=== PATIENT | female | born 1980 | race Caucasian/White ===

== ENCOUNTER → 2016-05-09 | Outpatient (CLI) | payer OTHER ==
[~2016-05-09] MED LIST: BUPR-197 PO; CYCL-36 PO; FOLI1 PO; GLUCTAB PO; IBUP800T23 PO; LAMI25TA3 PO; METH2.5 PO
[2016-05-09 12:09] LABS: AUTOMATED NEUTROPHIL # 11.2 TH/MM3 (1.8-7.7); BASOPHIL # 0.1 TH/MM3 (0-0.2); BASOPHIL % 0.6 % (0.0-2.0); EOSINOPHIL # 0.3 TH/MM3 (0-0.4); HEMATOCRIT 39.2 % (35.0-46.0); LYMPH % 18.6 % (9.0-44.0); LYMPHOCYTE # 2.8 TH/MM3 (1.0-4.8); MEAN CELL VOLUME 83.9 FL (80.0-100.0); MEAN CORPUSCULAR HEMOGLOBIN 27.9 PG (27.0-34.0); MEAN CORPUSCULAR HGB CONC 33.2 % (32.0-36.0); MONO % 5.6 % (0.0-8.0); NEUT % 73.2 % (16.0-70.0); PLATELET COUNT 195 TH/MM3 (150-450); RED BLOOD COUNT 4.67 MIL/MM3 (4.00-5.30); RED CELL DISTRIBUTION WIDTH 13.4 % (11.6-17.2); WHITE BLOOD COUNT 15.3 TH/MM3 (4.0-11.0)
[2016-05-09 12:44] LABS: HEMO FLAGS AUTO DIFF
[2016-05-09 12:46] LABS: BANDS 12 % (0-6); EOSINOPHILS 2 % (0-4); NEUTROPHIL # MANUAL DIFF 11.2 TH/MM3 (1.8-7.7); POLYS (SEG NEUTROPHILS) 61 % (16-70); WBC DIFF SAMPLE 100
[2016-05-09 12:47] LABS: PLATELET ESTIMATE SMEAR NORMAL (NORMAL)
[2016-05-09 12:48] LABS: PLATELET MORPHOLOGY NORMAL (NORMAL)
[2016-05-09 12:49] LABS: SCAN/DIFF FINAL DIFF MANUAL
[2016-05-09 12:59] LABS: RUBELLA IGG ANTIBODY 245.9 IU/mL (10.0-500.0); RUBELLA STATUS IMMUNE (IMMUNE)
[2016-05-10 10:48] LABS: RAPID PLASMA REAGIN SCREEN NON-REACTIVE (NON-REACTVE)
== END ==
LOC: CLAB 11:27
PROVIDERS: ATTEND Obstetrics & Gynecology
DX: Z34.81 Encounter for supervision of other normal pregnancy, first trimester (principal); Z01.83 Encounter for blood typing
CPT/HCPCS: 36415; 85007; 85027; 86592; 86762; 86850; 86900; 86901; 87086; 87340

== ENCOUNTER → 2016-06-12 | Outpatient (CLI) | payer OTHER | LOC: CLAB 11:30 | PROVIDERS: ATTEND Obstetrics & Gynecology | DX: R39.15 Urgency of urination (principal) | CPT/HCPCS: 87086 ==

== ENCOUNTER → 2016-07-10 | Outpatient (CLI) | payer OTHER ==
[2016-07-18 11:08] LABS: CALCULATED AGE AT EDD 36 years (()); GA USED IN RISK ESTIMATE Scan estimate (()); MATERNAL RACE BLACK non-Black (()); MATERNAL WEIGHT (LBS) 178 lbs (()); RECOMMENDED FOLLOW UP None. (())
== END ==
LOC: CLAB 11:09
PROVIDERS: ATTEND Obstetrics & Gynecology
DX: Z34.82 Encounter for supervision of other normal pregnancy, second trimester (principal); R39.15 Urgency of urination
CPT/HCPCS: 81511; 87086

== ENCOUNTER 2016-08-25 12:19 | Observation (INO) | payer OTHER ==
[2016-08-25] VITALS (15 sets, daily range): BP systolic 119–122; BP diastolic 71–79; PULSE 88–104; RESP 18–20; TEMP 98.6
[2016-08-25] MEDS ORDERED: SODIUM CHLORIDE 0.9% FLUSH 10 ML FLUSH IV FLUSH PRN (13:00)
[2016-08-25] MEDS ORDERED: ACETAMINOPHEN 325 MG TAB PO PRN (13:00)
[2016-08-25] MEDS ORDERED: ONDANSETRON ODT 4 MG TAB PO PRN (13:00)
[2016-08-25] MEDS ORDERED: BETAMETHASONE SOD PHOS/ACETATE SUSP 30 MG/5 ML VIAL IM SCH (13:00)
[2016-08-25] MEDS ORDERED: ZOLPIDEM TARTRATE 5 MG TAB PO PRN (13:00)
--- NOTE | 2016-08-25 13:04 | HHI.HP ---
HPI Chief Complaint watery DC and cervix 1 cm Date Seen: Aug 25, 2016 Time Seen: 12:50 Travel History International Travel<30 Days: No Contact w/Intl Traveler<30Days: No Known Affected Area: No History of Present Illness HPI Patient is 24 3/7 weeks and come to office for routine visit. She had no contractions and US 08/24/2016 with cervix 4 and no dilation. she comes in 24 hours later with 1 cm bulging membranes. Seems to be incompetent cervix with painless dilatation Para: 2 : 3 History Past Medical History Narrative Medical arthritis and Diabetes and depression Medical History: Denies Significant Hx Obstetric History Obstetric History CS x2 full term and last 28 week delivery Past Surgical History Narrative Surgical nose surgery, implants , appendectomy, ovarian cyst Family History Family History: Negative Social History Alcohol Use: No Tobacco Use: No Substance Abuse: No Allergies-Medications (Allergen,Severity, Reaction): Coded Allergies: No Known Allergies (Unverified , 07/21/15) Home Meds Active Scripts Cyclobenzaprine Hcl (Flexeril)10 Mg Tab10 Mg PO TID PRN (MUSCLE SPASM) #30 TAB Prov:Jennifer Montes 07/21/15 Ibuprofen 800 Mg [id number] Mg PO Q8HR NEB PRN (PAIN) #30 TAB Prov:Jennifer Montes 07/21/15 Reported Medications Bupropion HCl (Wellbutrin)100 Mg [id number] Mg PO BID 07/21/15 Lamotrigine (Lamictal)25 Mg Tab25 Mg PO DAILY 07/21/15 Metformin XR 24 HR (Glucophage XR 24 HR)500 Mg [id number] Mg PO BIDPC 07/21/15 Folic Acid (Folate 1 Mg Tab)1 Mg Tab1 Mg PO DAILY 07/21/15 Methotrexate (Rheumatrex)2.5 Mg Tab Po Daily UNKNOWN DOSE 07/21/15 Review of Systems Except as stated in HPI: all other systems reviewed are Neg Physical Exam Narrative GENERAL: Well-nourished, well-developed patient. SKIN: Warm and dry. HEAD: Normocephalic and atraumatic. EYES: No scleral icterus. No injection or drainage. ENT: No nasal drainage noted. Mucous membranes pink. Airway patent. NECK: Supple, trachea midline. No JVD. CARDIOVASCULAR: Regular rate and rhythm without murmurs, gallops, or rubs. RESPIRATORY: Breath sounds equal bilaterally. No accessory muscle use. BREASTS: Bilateral exam showed no masses , no retractions, no nipple discharge. ABDOMEN/GI: Abdomen soft, non-tender, bowel sounds present, no rebound, no guarding Gravid to 24 weeks size Fundal Height: [-] GENITOURINARY: External Genitalia: intact and normal in appearance BUS glands: [-] Cervix: Dilatation: 1 cm membrane intact but seen Effacement: 70 Station: Presentation: [-] Membranes: [intact Uterine Contractions: none FHT's: Category: 1 for 24 weeks Baseline: [-] Reactive: [-] Variability: [-] Decels: [-] EXTREMITIES: No cyanosis or edema. BACK: Nontender without obvious deformity. No CVA tenderness. NEUROLOGICAL: Awake and alert. Motor and sensory grossly within normal limits. Five out of 5 muscle strength in all muscle groups. Normal speech. Data Data Vital Signs Reviewed: Yes Orders Place In Observation (08/25/16 ) Diet Regular Basic (08/25/16 Lunch) Vital Signs (Adult) RIGO.D9O-BORPG AWAKE (08/25/16 12:47) Heart RIGO.QSHIFT (08/25/16 12:47) ^ Monitor (08/25/16 12:47) Activity Bed Rest With Brp (08/25/16 12:47) Complete Blood Count With Diff (08/25/16 12:47) Urinalysis - C+S If Indicated (08/25/16 12:47) Acetaminophen (Tylenol) (08/25/16 13:00) Sodium Chloride 0.9% Flush (Ns Flush) (08/25/16 21:00) Sodium Chloride 0.9% Flush (Ns Flush) (08/25/16 13:00) Zolpidem (Ambien) (08/25/16 13:00) Ondansetron Odt (Zofran Odt) (08/25/16 13:00) Us Ob Limited (08/25/16 12:47) Betamethasone Inj (Celestone Soluspan In (08/25/16 13:00) Ampicillin Inj (Ampicillin Inj) (08/25/16 18:00) Specimen To Be Collected PRN (08/25/16 12:47) Assessment/Plan Problem List: (1) Incompetence of cervix Assessment and Plan admit for steroids Yo Dennis MD Aug 25, 2016 13:04
[2016-08-25 13:45] LABS: AUTOMATED NEUTROPHIL # 10.9 TH/MM3 (1.8-7.7); BASOPHIL % 0.1 % (0.0-2.0); EOSINOPHIL # 0.1 TH/MM3 (0-0.4); EOSINOPHIL % 0.5 % (0.0-4.0); HEMATOCRIT 35.1 % (35.0-46.0); HEMO FLAGS DIFF FINAL; LYMPH % 14.7 % (9.0-44.0); MEAN CELL VOLUME 83.2 FL (80.0-100.0); MEAN CORPUSCULAR HEMOGLOBIN 27.7 PG (27.0-34.0); MEAN CORPUSCULAR HGB CONC 33.3 % (32.0-36.0); MONO % 5.2 % (0.0-8.0); NEUT % 79.5 % (16.0-70.0); PLATELET COUNT 199 TH/MM3 (150-450); RED BLOOD COUNT 4.22 MIL/MM3 (4.00-5.30); WHITE BLOOD COUNT 13.8 TH/MM3 (4.0-11.0)
[2016-08-25 13:54] LABS: BACTERIA, URINE FEW /hpf; BLOOD, URINE NEG (NEG); GLUCOSE,URINE 300 mg/dL (NEG); KETONE, URINE NEG (NEG); NITRITE,URINE NEG (NEG); PH, URINE 5.5 (5.0-8.5)
[2016-08-25 13:55] LABS: URINE COLOR YELLOW (YELLW/STRAW)
[2016-08-25 13:56] LABS: MUCUS URINE MOD /lpf (OCC)
[2016-08-25 13:57] LABS: COMMENT (UR) CULTURE INDICATED; CULTURE IF INDICATED CULTURE INDICATED
[2016-08-25] MEDS ORDERED: AMPICILLIN INJ 2,000 MG in SODIUM CHLORIDE 0.9% INJ 100 ML IV SCH (18:00)
--- NOTE | 2016-08-25 19:26 | HHI.PR ---
Subjective Remarks Patient still without contractions and resting on bed rest. Aware of need for transfer to level 3 nursery Objective Vital Signs Date Time Temp Pulse Resp B/P Pulse Ox O2 Delivery O2 Flow Rate FiO2 08/25/16 16:21 20 08/25/16 16:20 96 119/79 08/25/16 16:20 92 08/25/16 16:15 91 08/25/16 16:10 92 Result Diagram: 08/25/16 5621 Objective Remarks Sterile speculum reveals cervix 2 cm visually. bulging membranes no bleeding. Ultrasound shows thin cervix and 3 cm on ultrasound measurement. Breech 782 grams Assessment and Plan Problem List: (1) Incompetence of cervix Status: Acute Plan: Transfer to level 3 nursery Yo Dennis MD Aug 25, 2016 19:26
--- NOTE | 2016-08-25 19:30 | HHI.DCPOC ---
Discharge Care Plan Diagnosis: (1) Incompetence of cervix Report Symptoms to Your Doctor -Temperature above 100.5 degrees -Redness, of incision or excessive or foul smelling drainage -Unusual pain or calf pain -Increased vaginal bleeding -Painful or difficulty urinating -Feelings of extreme sadness or anxiety after 2 weeks Goals to Promote Your Health * To prevent worsening of your condition and complications * To maintain your health at the optimal level Directions to Meet Your Goals Take your medications as prescribed Follow your dietary instruction Follow activity as directed Ensure plenty of rest for recovery Drink fluids for hydration Keep your appointments as scheduled Take your immunizations and boosters as scheduled If your symptoms worsen call your PCP, if no PCP go to Urgent Care Center or Emergency Room Smoking is Dangerous to Your Health. Avoid second hand smoke Call the 24-hour crisis hotline for domestic abuse at Yo Dennis MD Aug 25, 2016 19:30
[2016-08-25] MEDS ORDERED: SODIUM CHLORIDE 0.9% FLUSH 10 ML FLUSH IV FLUSH SCH (21:00)
== END 2016-08-25 21:45 | disposition short-term general hospital (02) ==
LOC: H2EA 12:19
PROVIDERS: ADMIT Obstetrics & Gynecology; ATTEND Obstetrics & Gynecology
DX: N88.3 Incompetence of cervix uteri (principal); R82.99 Other abnormal findings in urine
CPT/HCPCS: 76816; 76817; 81001; 84112; 85025; 87086; G0378; J0290; J0702

== ENCOUNTER 2016-09-17 16:13 | Emergency (ER) | payer OTHER ==
[~2016-09-17] VITALS: Ht 160 cm; Wt 76.0 kg
[2016-09-17 16:22] VITALS: BP 117/85; PULSE 70; RESP 18; TEMP 98.3; O2SAT 94
[2016-09-17] MEDS ORDERED: SODIUM CHLOR 0.9% 1000 ML INJ 1,000 ML IV SCH (18:21)
[2016-09-17] MEDS ORDERED: SODIUM CHLORIDE 0.9% FLUSH 10 ML FLUSH IV FLUSH PRN (18:30)
[2016-09-17] MEDS ORDERED: ONDANSETRON HCL 4 MG/2 ML VIAL IVP ONE (18:30)
[2016-09-17] MEDS ORDERED: MORPHINE SULFATE 8 MG/ML INJ IV PUSH ONE ×2 (18:30→21:00)
[2016-09-17] MEDS ORDERED: KETOROLAC TROMETHAMINE 30 MG/ML (IVP) VIAL IVP ONE (18:30)
--- NOTE | 2016-09-17 18:40 | PD ---
HPI Chief Complaint: Abdominal Pain Time Seen by Provider: 18:20 Travel History International Travel<30 days: No Contact w/Intl Traveler<30days: No Traveled to known affect area: No History of Present Illness HPI The patient is a 36-year-old female who presents emergency department for abdominal pain. The patient is a who delivered a 26 week old premature baby at [facility] on September 12 secondary to premature labor. The patient is currently in the NICU. The patient was discharged after 2 days and had mild right lower quadrant pain, but was able to ambulate out of the hospital. She notes over the last 2-3 days she's had increasing right lower quadrant abdominal pain that radiates to the right flank and the right back. She also complains of increased pain with bladder distention and mild pain with urination , but denies any actual dysuria, frequency, or urgency. She denies any significant vaginal bleeding or discharge. She denies any fever. She does note mild nausea but denies any vomiting. The patient's last bowel movement was 2-3 days ago. 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 She does note a previous history of section 3 as well as appendectomy. She does complain of pain in the right flank that radiates into the right leg. Symptoms are moderate , worse with weightbearing and movement, and minimally alleviated at rest. PFSH Past Medical History Arthritis: Yes (RA) Depression: Yes Diabetes: Yes Diminished Hearing: No Immunizations Current: Yes ?: Not Past Surgical History Abdominal Surgery: Yes (LAP) Appendectomy: Yes Section: Yes Other Surgery: Yes (RHINOPLASTY BREAST AUG) Social History Alcohol Use: No Tobacco Use: No Substance Use: No Allergies-Medications (Allergen,Severity, Reaction): Coded Allergies: No Known Allergies (Unverified , 09/17/16) Reported Meds & Prescriptions Reported Meds & Active Scripts Active Reported Percocet (Oxycodone-Acetaminophen) 5-325 mg Tab 1 Tab PO DIRECTED PRN Review of Systems Except as stated in HPI: all other systems reviewed are Neg General / Constitutional: No: Fever Cardiovascular: No: Chest Pain or Discomfort Respiratory: No: Shortness of Breath Gastrointestinal: Positive: Nausea, Abdominal Pain, No: Vomiting, Diarrhea Genitourinary: Positive: Pelvic Pain, Flank Pain, Vaginal Bleeding (minimal status post section), No: Frequency, Dysuria, Discharge Skin: No Rash Physical Exam Narrative GENERAL: Awake, alert, pleasant 36-year-old female who appears her stated age and is in no acute respiratory distress. Patient does appear moderate discomfort. SKIN: Focused skin assessment warm/dry. HEAD: Atraumatic. Normocephalic. EYES: No injection or drainage. ENT: No nasal bleeding or discharge. Mucous membranes pink and moist. NECK: Trachea midline. No JVD. CARDIOVASCULAR: Regular rate and rhythm. No murmur appreciated. RESPIRATORY: No accessory muscle use. Clear to auscultation. Breath sounds equal bilaterally. GASTROINTESTINAL: Abdomen soft, tender palpation right lower quadrant suprapubic. Transverse incision appears clean with Steri-Strips in place, there is no drainage or bleeding noted. No obvious palpable abdominal abscess or seroma. Back: No CVA tenderness. MUSCULOSKELETAL: No obvious deformities. No clubbing. No cyanosis. No edema. NEUROLOGICAL: Awake and alert. No obvious cranial nerve deficits. Motor grossly within normal limits. Normal speech. PSYCHIATRIC: Appropriate mood and affect; insight and judgment normal. Data Data Last Documented VS Vital Signs Date Time Temp Pulse Resp B/P Pulse Ox O2 Delivery O2 Flow Rate FiO2 09/17/16 19:06 57 16 119/78 96 Room Air 09/17/16 16:22 98.3 Orders Complete Blood Count With Diff (09/17/16 18:21) Comprehensive Metabolic Panel (09/17/16 18:21) Lipase (09/17/16 18:21) Lactic Acid (09/17/16 18:21) Urinalysis - C+S If Indicated (09/17/16 18:21) Ct Abd/Pel W Iv Contrast(Rout) (09/17/16 18:21) Iv Access Insert/Monitor (09/17/16 18:21) Ecg Monitoring (09/17/16 18:21) Oximetry (09/17/16 18:21) Ondansetron Inj (Zofran Inj) (09/17/16 18:30) Sodium Chlor 0.9% 1000 Ml Inj (Ns 1000 M (09/17/16 18:21) Sodium Chloride 0.9% Flush (Ns Flush) (09/17/16 18:30) Ketorolac Inj (Toradol Inj) (09/17/16 18:30) Morphine Inj (Morphine Inj) (09/17/16 18:30) Iohexol 350 Inj (Omnipaque 350 Inj) (09/17/16 20:09) Labs Laboratory Tests Test 09/17/16 18:55 White Blood Count 12.1 TH/MM3 Red Blood Count 4.72 MIL/MM3 Hemoglobin 12.8 GM/DL Hematocrit 39.6 % Mean Corpuscular Volume 83.9 FL Mean Corpuscular Hemoglobin 27.0 PG Mean Corpuscular Hemoglobin 32.3 % Concent Red Cell Distribution Width 13.5 % Platelet Count 315 TH/MM3 Mean Platelet Volume 7.1 FL Neutrophils (%) (Auto) 70.6 % Lymphocytes (%) (Auto) 21.0 % Monocytes (%) (Auto) 4.7 % Eosinophils (%) (Auto) 3.4 % Basophils (%) (Auto) 0.3 % Neutrophils # (Auto) 8.5 TH/MM3 Lymphocytes # (Auto) 2.6 TH/MM3 Monocytes # (Auto) 0.6 TH/MM3 Eosinophils # (Auto) 0.4 TH/MM3 Basophils # (Auto) 0.0 TH/MM3 CBC Comment DIFF FINAL Differential Comment Urine Color YELLOW Urine Turbidity CLEAR Urine pH 5.5 Urine Specific [place] 1.017 Urine Protein NEG mg/dL Urine Glucose (UA) NEG mg/dL Urine Ketones NEG mg/dL Urine Occult Blood SMALL Urine Nitrite NEG Urine Bilirubin NEG Urine Leukocyte Esterase NEG Urine RBC 4-9 /hpf Urine Squamous Epithelial 0-5 /hpf Cells Urine Bacteria OCC /hpf Urine Mucus FEW /lpf Microscopic Urinalysis Comment CULT NOT INDICATED Sodium Level 140 MEQ/L Potassium Level 3.9 MEQ/L Chloride Level 104 MEQ/L Carbon Dioxide Level 27.4 MEQ/L Anion Gap 9 MEQ/L Blood Urea Nitrogen 12 MG/DL Creatinine 0.61 MG/DL Estimat Glomerular Filtration 111 ML/MIN Rate Random Glucose 97 MG/DL Lactic Acid Level 0.5 mmol/L Calcium Level 9.1 MG/DL Total Bilirubin 0.3 MG/DL Aspartate Amino Transf 177 U/L (AST/SGOT) Alanine Aminotransferase 213 U/L (ALT/SGPT) Alkaline Phosphatase 130 U/L Total Protein 7.2 GM/DL Albumin 2.7 GM/DL Lipase 114 U/L [facility] Medical Decision Making Medical Screen Exam Complete: Yes Emergency Medical Condition: Yes Medical Record Reviewed: Yes Interpretation(s) Laboratory Tests Test 09/17/16 18:55 White Blood Count 12.1 TH/MM3 Red Blood Count 4.72 MIL/MM3 Hemoglobin 12.8 GM/DL Hematocrit 39.6 % Mean Corpuscular Volume 83.9 FL Mean Corpuscular Hemoglobin 27.0 PG Mean Corpuscular Hemoglobin 32.3 % Concent Red Cell Distribution Width 13.5 % Platelet Count 315 TH/MM3 Mean Platelet Volume 7.1 FL Neutrophils (%) (Auto) 70.6 % Lymphocytes (%) (Auto) 21.0 % Monocytes (%) (Auto) 4.7 % Eosinophils (%) (Auto) 3.4 % Basophils (%) (Auto) 0.3 % Neutrophils # (Auto) 8.5 TH/MM3 Lymphocytes # (Auto) 2.6 TH/MM3 Monocytes # (Auto) 0.6 TH/MM3 Eosinophils # (Auto) 0.4 TH/MM3 Basophils # (Auto) 0.0 TH/MM3 CBC Comment DIFF FINAL Differential Comment Urine Color YELLOW Urine Turbidity CLEAR Urine pH 5.5 Urine Specific [place] 1.017 Urine Protein NEG mg/dL Urine Glucose (UA) NEG mg/dL Urine Ketones NEG mg/dL Urine Occult Blood SMALL Urine Nitrite NEG Urine Bilirubin NEG Urine Leukocyte Esterase NEG Urine RBC 4-9 /hpf Urine Squamous Epithelial 0-5 /hpf Cells Urine Bacteria OCC /hpf Urine Mucus FEW /lpf Microscopic Urinalysis Comment CULT NOT INDICATED Sodium Level 140 MEQ/L Potassium Level 3.9 MEQ/L Chloride Level 104 MEQ/L Carbon Dioxide Level 27.4 MEQ/L Anion Gap 9 MEQ/L Blood Urea Nitrogen 12 MG/DL Creatinine 0.61 MG/DL Estimat Glomerular Filtration 111 ML/MIN Rate Random Glucose 97 MG/DL Lactic Acid Level 0.5 mmol/L Calcium Level 9.1 MG/DL Total Bilirubin 0.3 MG/DL Aspartate Amino Transf 177 U/L (AST/SGOT) Alanine Aminotransferase 213 U/L (ALT/SGPT) Alkaline Phosphatase 130 U/L Total Protein 7.2 GM/DL Albumin 2.7 GM/DL Lipase 114 U/L Last Impressions Abdomen/Pelvis CT 09/17/16 8690 Signed Impressions: Service Date/Time: Saturday, September 17, 2016 19:39 - CONCLUSION: Mild left lung base atelectasis and/or infiltrate is seen. Chris Matias MD Differential Diagnosis Differential diagnosis includes postoperative seroma, postoperative hematoma, postoperative abscess, endometriosis, retained products of conception, neuralgia , pyelonephritis, nephrolithiasis, hydronephrosis. Narrative Course IV was established, labs are drawn and sent, and the patient was placed on cardiac telemetry monitoring and continuous pulse oximetry monitoring. The patient was administered morphine, Toradol, Zofran, and IV fluids. CT of the abdomen and pelvis with IV contrast was ordered to evaluate for possible postoperative abscess/seroma/hematoma. Laboratory evaluation reveals mildly elevated white count, LFTs are slightly elevated, but bilirubin and lipase are unremarkable. CT the abdomen and pelvis reveals post surgery uterus, but no other abnormalities noted. The patient's pain had improved to 4/10, therefore, she was redosed with morphine. The patient will be provided a copy of her CT results and lab results at discharge. She is advised to follow-up with her cooperage shop supervisor return if symptoms worsen or progress. Diagnosis Primary Impression: Abdominal pain Qualified Code: R10.31 - Right lower quadrant abdominal pain Patient Instructions: General Instructions Additional Instructions: Please provide the patient a copy of her CT results and lab results at discharge. Medications as directed. Follow-up with your cooperage shop supervisor. Return sooner if symptoms worsen or progress. Med/Other Pt SpecificInfo: Prescription(s) given Scripts Oxycodone-Acetaminophen (Percocet)10-325 mg Tab1 Tab PO Q6H PRN (PAIN) #15 TAB Ref 0 Prov:Magdiel Holguin MD 09/17/16 Ibuprofen 800 Mg [id number] Mg PO Q8H PRN (Pain/Inflammation) #20 TAB Ref 0 Prov:Magdiel Holguin MD 09/17/16 Disposition: 01 DISCHARGE HOME Condition: Stable Magdiel Holguin MD Sep 17, 2016 18:40
[2016-09-17] MEDS ORDERED: PERC5TAB12 PO (18:42)
[2016-09-17 18:56] VITALS: O2SAT 98
[2016-09-17 19:01] LABS: AUTOMATED NEUTROPHIL # 8.5 TH/MM3 (1.8-7.7); BASOPHIL % 0.3 % (0.0-2.0); EOSINOPHIL # 0.4 TH/MM3 (0-0.4); EOSINOPHIL % 3.4 % (0.0-4.0); HEMATOCRIT 39.6 % (35.0-46.0); LYMPHOCYTE # 2.6 TH/MM3 (1.0-4.8); MEAN CELL VOLUME 83.9 FL (80.0-100.0); MEAN CORPUSCULAR HGB CONC 32.3 % (32.0-36.0); MONO % 4.7 % (0.0-8.0); NEUT % 70.6 % (16.0-70.0); PLATELET COUNT 315 TH/MM3 (150-450); RED BLOOD COUNT 4.72 MIL/MM3 (4.00-5.30); RED CELL DISTRIBUTION WIDTH 13.5 % (11.6-17.2); WHITE BLOOD COUNT 12.1 TH/MM3 (4.0-11.0)
[2016-09-17 19:05] LABS: BLOOD, URINE SMALL (NEG); GLUCOSE,URINE NEG (NEG); KETONE, URINE NEG (NEG); NITRITE,URINE NEG (NEG); PH, URINE 5.5 (5.0-8.5)
[2016-09-17 19:06] VITALS: BP 119/78; PULSE 57; RESP 16; O2SAT 96
[2016-09-17 19:09] LABS: CHLORIDE 104 MEQ/L (98-107); POTASSIUM 3.9 MEQ/L (3.5-5.1); SODIUM (NA) 140 MEQ/L (136-145)
[2016-09-17 19:12] LABS: ANION GAP 9 MEQ/L (5-15); BICARBONATE 27.4 MEQ/L (21.0-32.0)
[2016-09-17 19:13] LABS: BLOOD UREA NITROGEN 12 MG/DL (7-18)
[2016-09-17 19:15] LABS: ALT (GPT) 213 U/L (10-53); AST (GOT) 177 U/L (15-37); GLOMERULAR FILTRATION RATE 111 ML/MIN (>89)
[2016-09-17 19:17] LABS: HEMO FLAGS DIFF FINAL; TOTAL BILIRUBIN ADULT 0.3 MG/DL (0.2-1.0)
[2016-09-17 19:18] LABS: ALKALINE PHOSPHATASE 130 U/L (45-117)
[2016-09-17 19:21] LABS: BACTERIA, URINE OCC /hpf; MUCUS URINE FEW /lpf (OCC); SQUAMOUS EPITHELIAL CELL URINE 0-5 /hpf (0-5); URINE COLOR YELLOW (YELLW/STRAW)
[2016-09-17 19:22] LABS: COMMENT (UR) CULT NOT INDICATED; CULTURE IF INDICATED CULT NOT INDICATED
[2016-09-17] MEDS ORDERED: IOHEXOL 350 MG/ML 10 ML VIAL (for RAD DIAG) IV ONE (20:09)
--- NOTE | 2016-09-17 20:21 | RADRPT ---
EXAM DATE/TIME: 09/17/2016 19:39 [facility] COMPARISON: US OB REPEAT/FU W/TRANSVAG, August 25, 2016, 15:25. INDICATIONS : Right lower quadrant and flank pain post section one week ago. Pain with urination. IV CONTRAST: 90 cc Omnipaque 350 (iohexol) IV ORAL CONTRAST: No oral contrast ingested. RADIATION DOSE: 10.55 CTDIvol (mGy) MEDICAL HISTORY : Diabetes mellitus type 2. SURGICAL HISTORY : Appendectomy. section. ENCOUNTER: Initial ACUITY: 1 week PAIN SCALE: 8/10 LOCATION: Right lower quadrant Flank. TECHNIQUE: Volumetric scanning of the abdomen and pelvis was performed. Using automated exposure control and ad justment of the mA and/or kV according to patient size, radiation dose was kept as low as reasonably achievable to obtain optimal diagnostic quality images. DICOM format image data is available electro nically for review and comparison. FINDINGS: CT Abdomen: The liver, spleen, pancreas, kidneys, adrenals are unremarkable. There is no evidence for any appreciable pathological adenopathy, free fluid, or bowel obstruction. Mild left lung base atel ectasis and/or infiltrate is seen. CT pelvis: There is no evidence for mass, abscess formation, or any significant adenopathy within the pelvis. The uterus is enlarged measuring 9.3 cm in transverse diameter demonstrates inhomogeneous en hancement characteristic of post section uterus. CONCLUSION: Mild left lung base atelectasis and/or infiltrate is seen. Chris Matias MD on September 17, 2016 at 20:17 Board Certified Radiologist. This report was verified electronically.
[2016-09-17 20:45] VITALS: BP 123/82; PULSE 62; RESP 18; TEMP 98.2; O2SAT 97
[2016-09-17] MEDS ORDERED: IBUP800T23 PO (20:50)
[2016-09-17] MEDS ORDERED: PERC10TA27 PO (20:50)
== END 2016-09-17 21:15 | disposition home or self-care (01) ==
LOC: PHED 16:13
DX: O90.89 Other complications of the puerperium, not elsewhere classified (principal); R10.31 Right lower quadrant pain; R39.89 Other symptoms and signs involving the genitourinary system; R11.0 Nausea; D72.829 Elevated white blood cell count, unspecified; R79.89 Other specified abnormal findings of blood chemistry; E11.9 Type 2 diabetes mellitus without complications; Z87.39 Personal history of other diseases of the musculoskeletal system and connective tissue; Z86.59 Personal history of other mental and behavioral disorders
CPT/HCPCS: 74177; 80053; 81001; 83605; 83690; 85025; 96361; 96374; 96375; 96376; 99285; J1885; J2270; J2405; J7030; Q9967

== ENCOUNTER → 2016-10-19 | Outpatient (CLI) | payer OTHER ==
[~2016-10-19] MED LIST changes: -BUPR-197 PO; -CYCL-36 PO; -FOLI1 PO; -GLUCTAB PO; -LAMI25TA3 PO; -METH2.5 PO; +PERC10TA27 PO; +PERC5TAB12 PO
[2016-10-19 09:19] LABS: HEMATOCRIT 39.5 % (35.0-46.0); MEAN CELL VOLUME 83.4 FL (80.0-100.0); MEAN CORPUSCULAR HEMOGLOBIN 28.1 PG (27.0-34.0); MEAN CORPUSCULAR HGB CONC 33.7 % (32.0-36.0); PLATELET COUNT 229 TH/MM3 (150-450); RED BLOOD COUNT 4.73 MIL/MM3 (4.00-5.30); REVIEW FLAG FINAL; WHITE BLOOD COUNT 9.2 TH/MM3 (4.0-11.0)
[2016-10-19 09:46] LABS: ANION GAP 7 MEQ/L (5-15); AST (GOT) 39 U/L (15-37); BLOOD UREA NITROGEN 9 MG/DL (7-18); CHLORIDE 105 MEQ/L (98-107); GLOMERULAR FILTRATION RATE 93 ML/MIN (>89); GLUCOSE,FASTING 94 MG/DL (74-99); SODIUM (NA) 139 MEQ/L (136-145)
[2016-10-19 09:53] LABS: ALKALINE PHOSPHATASE 109 U/L (45-117); ALT (GPT) 57 U/L (10-53); TOTAL BILIRUBIN ADULT 0.5 MG/DL (0.2-1.0)
== END ==
LOC: CLAB 07-07 12:09
PROVIDERS: ATTEND Internal Medicine Rheumatology
DX: M06.09 Rheumatoid arthritis without rheumatoid factor, multiple sites (principal); Z79.899 Other long term (current) drug therapy
CPT/HCPCS: 36415; 80053; 85027

== ENCOUNTER → 2017-02-07 | Outpatient (CLI) | payer OTHER ==
[~2017-02-07] MED LIST changes: +IBUP1TAB7 PO; -IBUP800T23 PO
[2017-02-07 11:19] LABS: HEMATOCRIT 42.7 % (35.0-46.0); MEAN CELL VOLUME 81.7 FL (80.0-100.0); MEAN CORPUSCULAR HEMOGLOBIN 26.8 PG (27.0-34.0); MEAN CORPUSCULAR HGB CONC 32.8 % (32.0-36.0); PLATELET COUNT 220 TH/MM3 (150-450); RED BLOOD COUNT 5.22 MIL/MM3 (4.00-5.30); RED CELL DISTRIBUTION WIDTH 15.6 % (11.6-17.2); REVIEW FLAG FINAL; WHITE BLOOD COUNT 8.3 TH/MM3 (4.0-11.0)
[2017-02-07 11:50] LABS: WESTERGREN SEDIMENTATION RATE 12 mm/hr (0-20)
[2017-02-07 11:55] LABS: ANION GAP 5 MEQ/L (5-15); AST (GOT) 27 U/L (15-37); BICARBONATE 27.8 MEQ/L (21.0-32.0); BLOOD UREA NITROGEN 10 MG/DL (7-18); CHLORIDE 107 MEQ/L (98-107); GLOMERULAR FILTRATION RATE 105 ML/MIN (>89); GLUCOSE,FASTING 88 MG/DL (74-99); POTASSIUM 4.5 MEQ/L (3.5-5.1); SODIUM (NA) 140 MEQ/L (136-145)
[2017-02-07 11:56] LABS: ALT (GPT) 37 U/L (10-53)
[2017-02-07 11:58] LABS: ALKALINE PHOSPHATASE 95 U/L (45-117); TOTAL BILIRUBIN ADULT 0.4 MG/DL (0.2-1.0)
== END ==
LOC: CLAB 09:40
PROVIDERS: ATTEND Internal Medicine Rheumatology
DX: M06.89 Other specified rheumatoid arthritis, multiple sites (principal); Z79.899 Other long term (current) drug therapy
CPT/HCPCS: 36415; 80053; 85027; 85652

== ENCOUNTER → 2017-05-28 | Outpatient (CLI) | payer OTHER ==
[2017-05-28 10:53] LABS: HEMATOCRIT 41.3 % (35.0-46.0); HEMOGLOBIN 13.8 GM/DL (11.6-15.3); MEAN CELL VOLUME 84.1 FL (80.0-100.0); MEAN CORPUSCULAR HEMOGLOBIN 28.1 PG (27.0-34.0); MEAN CORPUSCULAR HGB CONC 33.4 % (32.0-36.0); MEAN PLATELET VOLUME 7.2 FL (7.0-11.0); PLATELET COUNT 251 TH/MM3 (150-450); RED BLOOD COUNT 4.91 MIL/MM3 (4.00-5.30); RED CELL DISTRIBUTION WIDTH 13.8 % (11.6-17.2); WHITE BLOOD COUNT 8.3 TH/MM3 (4.0-11.0)
[2017-05-28 11:18] LABS: ALBUMIN 3.7 GM/DL (3.4-5.0); ALT (GPT) 95 U/L (10-53); AST (GOT) 43 U/L (15-37); BICARBONATE 27.4 MEQ/L (21.0-32.0); BLOOD UREA NITROGEN 10 MG/DL (7-18); CALCIUM 8.6 MG/DL (8.5-10.1); CHLORIDE 109 MEQ/L (98-107); CREATININE 0.71 MG/DL (0.50-1.00); GLOMERULAR FILTRATION RATE 93 ML/MIN (>89); GLUCOSE,FASTING 91 MG/DL (74-99); SODIUM (NA) 143 MEQ/L (136-145)
[2017-05-28 11:20] LABS: ALKALINE PHOSPHATASE 138 U/L (45-117); TOTAL BILIRUBIN ADULT 0.3 MG/DL (0.2-1.0); TOTAL PROTEIN 7.7 GM/DL (6.4-8.2)
[2017-05-28 11:37] LABS: WESTERGREN SEDIMENTATION RATE 22 mm/hr (0-20)
== END ==
LOC: CLAB 10:32
PROVIDERS: ATTEND Internal Medicine Rheumatology
DX: M05.89 Other rheumatoid arthritis with rheumatoid factor of multiple sites (principal); Z79.899 Other long term (current) drug therapy
CPT/HCPCS: 36415; 80053; 85027; 85652

== ENCOUNTER 2017-07-10 08:43 | Emergency (ER) | payer OTHER ==
[2017-07-10 09:16] LABS: AUTOMATED NEUTROPHIL # 7.4 TH/MM3 (1.8-7.7); BASOPHIL % 0.5 % (0.0-2.0); EOSINOPHIL # 0.1 TH/MM3 (0-0.4); EOSINOPHIL % 0.6 % (0.0-4.0); HEMO FLAGS DIFF FINAL; HEMOGLOBIN 13.9 GM/DL (11.6-15.3); LYMPH % 20.9 % (9.0-44.0); LYMPHOCYTE # 2.2 TH/MM3 (1.0-4.8); MEAN CELL VOLUME 82.8 FL (80.0-100.0); MEAN CORPUSCULAR HGB CONC 33.8 % (32.0-36.0); MEAN PLATELET VOLUME 7.9 FL (7.0-11.0); MONO % 6.2 % (0.0-8.0); MONOCYTE # 0.6 TH/MM3 (0-0.9); NEUT % 71.8 % (16.0-70.0); PLATELET COUNT 209 TH/MM3 (150-450); RED BLOOD COUNT 4.95 MIL/MM3 (4.00-5.30); RED CELL DISTRIBUTION WIDTH 13.3 % (11.6-17.2); WHITE BLOOD COUNT 10.3 TH/MM3 (4.0-11.0)
[2017-07-10 09:29] LABS: ANION GAP 7 MEQ/L (5-15); BICARBONATE 25.2 MEQ/L (21.0-32.0); BLOOD UREA NITROGEN 12 MG/DL (7-18); CALCIUM 8.7 MG/DL (8.5-10.1); CHLORIDE 107 MEQ/L (98-107); CREATININE 0.65 MG/DL (0.50-1.00); GLOMERULAR FILTRATION RATE 103 ML/MIN (>89); GLUCOSE,RANDOM 110 MG/DL (74-106); POTASSIUM 4.3 MEQ/L (3.5-5.1); SODIUM (NA) 139 MEQ/L (136-145)
[2017-07-10 10:34] LABS: BACTERIA, URINE RARE /hpf; BILIRUBIN, URINE NEG (NEG); BLOOD, URINE NEG (NEG); GLUCOSE,URINE NEG (NEG); HYALINE CAST, URINE 2 /lpf (RARE); KETONE, URINE NEG (NEG); NITRITE,URINE NEG (NEG); SQUAMOUS EPITHELIAL CELL URINE 10 /hpf (0-5); URINE COLOR YELLOW (YELLW/STRAW); URINE LEUKOCYTE ESTERASE SMALL (NEG)
[2017-07-10 10:35] LABS: COMMENT (UR) CULT NOT INDICATED; CULTURE IF INDICATED CULT NOT INDICATED
== END 2017-07-10 11:15 | disposition home or self-care (01) ==
LOC: NEPE 08:43
DX: N64.4 Mastodynia (principal)
CPT/HCPCS: 76642; 80048; 81001; 85025; 99284-25

== ENCOUNTER → 2017-07-24 | Outpatient (CLI) | payer OTHER ==
[~2017-07-24] MED LIST changes: +AUGM875T3 PO; -IBUP1TAB7 PO; -PERC10TA27 PO; -PERC5TAB12 PO; +PRED5TAB PO
[2017-07-24 11:56] LABS: AUTOMATED NEUTROPHIL # 3.8 TH/MM3 (1.8-7.7); BASOPHIL % 0.3 % (0.0-2.0); EOSINOPHIL # 0.2 TH/MM3 (0-0.4); EOSINOPHIL % 2.3 % (0.0-4.0); HEMATOCRIT 39.3 % (35.0-46.0); HEMOGLOBIN 13.4 GM/DL (11.6-15.3); LYMPH % 35.6 % (9.0-44.0); LYMPHOCYTE # 2.5 TH/MM3 (1.0-4.8); MEAN CELL VOLUME 82.1 FL (80.0-100.0); MEAN CORPUSCULAR HEMOGLOBIN 27.9 PG (27.0-34.0); MEAN PLATELET VOLUME 7.9 FL (7.0-11.0); MONO % 7.9 % (0.0-8.0); MONOCYTE # 0.6 TH/MM3 (0-0.9); NEUT % 53.9 % (16.0-70.0); PLATELET COUNT 239 TH/MM3 (150-450); RED BLOOD COUNT 4.79 MIL/MM3 (4.00-5.30); RED CELL DISTRIBUTION WIDTH 13.2 % (11.6-17.2); WHITE BLOOD COUNT 7.1 TH/MM3 (4.0-11.0)
[2017-07-24 12:08] LABS: THYROXINE (T4) 9.7 MCG/DL (4.8-13.9)
== END ==
LOC: CLAB 10:59
PROVIDERS: ATTEND Obstetrics & Gynecology
DX: R53.83 Other fatigue (principal)
CPT/HCPCS: 36415; 84436; 84443; 85025

== ENCOUNTER → 2017-08-27 | Outpatient (CLI) | payer OTHER ==
[2017-08-27 11:31] LABS: HEMATOCRIT 41.5 % (35.0-46.0); MEAN CELL VOLUME 83.3 FL (80.0-100.0); MEAN CORPUSCULAR HEMOGLOBIN 28.2 PG (27.0-34.0); MEAN CORPUSCULAR HGB CONC 33.9 % (32.0-36.0); MEAN PLATELET VOLUME 8.4 FL (7.0-11.0); PLATELET COUNT 215 TH/MM3 (150-450); RED BLOOD COUNT 4.98 MIL/MM3 (4.00-5.30); RED CELL DISTRIBUTION WIDTH 13.8 % (11.6-17.2); WHITE BLOOD COUNT 8.1 TH/MM3 (4.0-11.0)
[2017-08-27 12:32] LABS: WESTERGREN SEDIMENTATION RATE 13 mm/hr (0-20)
[2017-08-27 13:21] LABS: ALT (GPT) 61 U/L (10-53)
[2017-08-27 13:24] LABS: ALKALINE PHOSPHATASE 79 U/L (45-117); TOTAL BILIRUBIN ADULT 0.3 MG/DL (0.2-1.0); TOTAL PROTEIN 7.5 GM/DL (6.4-8.2)
[2017-08-27 13:49] LABS: ALBUMIN 3.7 GM/DL (3.4-5.0); AST (GOT) 36 U/L (15-37); BICARBONATE 26.5 MEQ/L (21.0-32.0); BLOOD UREA NITROGEN 14 MG/DL (7-18); CHLORIDE 107 MEQ/L (98-107); CREATININE 0.72 MG/DL (0.50-1.00); GLOMERULAR FILTRATION RATE 91 ML/MIN (>89); GLUCOSE,FASTING 96 MG/DL (74-99); SODIUM (NA) 141 MEQ/L (136-145)
== END ==
LOC: CLAB 10:27
PROVIDERS: ATTEND Internal Medicine Rheumatology
DX: M05.89 Other rheumatoid arthritis with rheumatoid factor of multiple sites (principal); Z79.899 Other long term (current) drug therapy
CPT/HCPCS: 36415; 80053; 85027; 85652